=== PATIENT | male | born 1965 | race American Indian/Alaskan Native ===

== ENCOUNTER 2016-09-06 12:55 | Emergency (ER) | payer MEDICAID, OTHER ==
--- NOTE | 2016-09-06 15:20 | EDM.PDOC ---
[id number] 4d ABDOMINAL PAIN; TIRED Time Seen by Provider: 09/06/16 15:20 Source of Information: Reports: Patient History Limitations: Reports: No Limitations - History of Present Illness INITIAL COMMENTS - FREE TEXT/NARRATIVE: jose alejandro been having alot of epigastric pain. He is having some loose stool. He has not vomited. The pain got alot worse today while he was waiting for his son to get back from surgery. Onset: Gradual, Other ( worse today. ) Duration: Hour(s): Location: Reports: Abdomen Associated Symptoms: Reports: Nausea/Vomiting Upper Abdomen Pain Score (Numeric/FACES): 7 - Related Data Allergies Allergy/AdvReac Type Severity Reaction Status Date / Time No Known Allergies Allergy Verified 09/07/16 11:39 Home Meds: Home Meds FLUoxetine [PROzac] 20 mg PO DAILY 06/14/14 [History] Omeprazole [Prilosec] 20 mg PO BIDAC 06/15/15 [History] Sucralfate [Carafate] 1 gm PO DAILY 09/07/16 [History] Past Medical History - Past Health History Medical/Surgical History: Denies Medical/Surgical History Cardiovascular History: Reports: Hypertension Respiratory History: Reports: Sleep Apnea Other Respiratory History: c-pap prn Gastrointestinal History: Reports: Diverticulosis, GERD Other Gastrointestinal History: blood in stool Musculoskeletal History: Reports: Back Pain, Chronic, Other (See Below) Other Musculoskeletal History: Left shoulder dislocation Neurological History: Reports: Other (See Below) Other Neuro History: headaches for the past 2 weeks Psychiatric History: Reports: Anxiety, Depression - Past Surgical History GI Surgical History: Reports: Colonoscopy Social & Family History - Tobacco Use Smoking Status *Q: Former Smoker Years of Tobacco use: 26 Packs/Tins Daily: 0.7 Used Tobacco, but Quit: Yes Month Tobacco Last Used: quit last week Second Hand Smoke Exposure: Yes - Recreational Drug Use Recreational Drug Use: No ED ROS GENERAL - Review of Systems Review Of Systems: See Below Constitutional: Reports: No Symptoms HEENT: Reports: No Symptoms Respiratory: Reports: No Symptoms Cardiovascular: Reports: No Symptoms Endocrine: Reports: No Symptoms GI/Abdominal: Reports: Abdominal Pain, Nausea : Reports: No Symptoms ED EXAM, GENERAL - Physical Exam Exam: See Below Free Text/Narrative:: jose alejandro been having epigastric pain and this afternoon it quite kelly. He is using 2 prilosec daily. He has not been scoped. Exam Limited By: No Limitations General Appearance: Alert, Anxious Ears: Normal External Exam Nose: Normal Inspection Throat/Mouth: Normal Inspection Head: Atraumatic Neck: Normal Inspection Respiratory/Chest: No Respiratory Distress Cardiovascular: Regular Rate, Rhythm GI/Abdominal: Soft, Other (pt is quite tender in the epigastric area. He has not vomited, He is having loose stool. The stool obtained here was neg for blood. ) (Male) Exam: Deferred Rectal (Males) Exam: Other ( no masses the stool was neg for blood, ) Back Exam: Normal Inspection Extremities: Normal Inspection Neurological: Alert, Oriented, Normal Cognition Psychiatric: Normal Affect Course - Vital Signs Last Recorded V/S: Last Vital Signs Temp 36.5 C 09/06/16 15:18 Pulse 48 L 09/06/16 16:05 Resp 16 09/06/16 16:05 BP 117/72 09/06/16 16:05 Pulse Ox 99 09/06/16 16:05 - Orders/Labs/Meds Labs: Laboratory Tests 09/06/16 09/06/16 09/06/16 Range/Units 15:27 15:27 15:32 WBC 7.0 (4.5-11.0) K/uL RBC 4.94 (4.30-5.90) M/uL Hgb 15.4 H (12.0-15.0) g/dL Hct 43.8 (40.0-54.0) % MCV 89 (80-98) fL MCH 31 (27-31) pg MCHC 35 (32-36) % Plt Count 240 (150-400) K/uL Neut % (Auto) 51 (36-66) % Lymph % (Auto) 40 (24-44) % [place] % (Auto) 7 H (2-6) % Eos % (Auto) 2 (2-4) % Baso % (Auto) 1 (0-1) % Sodium 142 (140-148) mmol/L Potassium 3.9 (3.6-5.2) mmol/L Chloride 105 (100-108) mmol/L Carbon Dioxide 29 (21-32) mmol/L Anion Gap 8.2 (5.0-14.0) mmol/L BUN 8 (7-18) mg/dL Creatinine 0.8 (0.8-1.3) mg/dL Est Cr Clr Drug Dosing 128.44 mL/min Estimated GFR (MDRD) > 60 (>60) Glucose 92 (74-106) mg/dL Calcium 8.2 L (8.5-10.1) mg/dL Total Bilirubin 0.3 (0.2-1.0) mg/dL AST 18 (15-37) U/L ALT 33 (12-78) U/L Alkaline Phosphatase 86 (46-116) U/L Total Protein 7.3 (6.4-8.2) g/dL Albumin 3.7 (3.4-5.0) g/dL Globulin 3.6 H (2.3-3.5) g/dL Albumin/Globulin Ratio 1.0 L (1.2-2.2) Lipase 101 (73-393) U/L Urine Color Urine Appearance Urine pH (4.5-8.0) Ur Specific [place] (1.008-1.030) Urine Protein (NEGATIVE) mg/dL Urine Glucose (UA) (NEGATIVE) mg/dL Urine Ketones (NEGATIVE) mg/dL Urine Occult Blood (NEGATIVE) Urine Nitrite (NEGAITVE) Urine Bilirubin (NEGATIVE) Urine Urobilinogen (NORMAL) mg/dL Ur Leukocyte Esterase (NEGATIVE) Urine RBC (0-5) Urine WBC (0-5) Ur Epithelial Cells Amorphous Sediment Urine Bacteria Urine Mucus // Range/Units 15:41 WBC (4.5-11.0) K/uL RBC (4.30-5.90) M/uL Hgb (12.0-15.0) g/dL Hct (40.0-54.0) % MCV (80-98) fL MCH (27-31) pg MCHC (32-36) % Plt Count (150-400) K/uL Neut % (Auto) (36-66) % Lymph % (Auto) (24-44) % [place] % (Auto) (2-6) % Eos % (Auto) (2-4) % Baso % (Auto) (0-1) % Sodium (140-148) mmol/L Potassium (3.6-5.2) mmol/L Chloride (100-108) mmol/L Carbon Dioxide (21-32) mmol/L Anion Gap (5.0-14.0) mmol/L BUN (7-18) mg/dL Creatinine (0.8-1.3) mg/dL Est Cr Clr Drug Dosing mL/min Estimated GFR (MDRD) (>60) Glucose (74-106) mg/dL Calcium (8.5-10.1) mg/dL Total Bilirubin (0.2-1.0) mg/dL AST (15-37) U/L ALT (12-78) U/L Alkaline Phosphatase (46-116) U/L Total Protein (6.4-8.2) g/dL Albumin (3.4-5.0) g/dL Globulin (2.3-3.5) g/dL Albumin/Globulin Ratio (1.2-2.2) Lipase (73-393) U/L Urine Color Yellow Urine Appearance Clear Urine pH 6.0 (4.5-8.0) Ur Specific [place] 1.015 (1.008-1.030) Urine Protein Negative (NEGATIVE) mg/dL Urine Glucose (UA) Normal (NEGATIVE) mg/dL Urine Ketones Negative (NEGATIVE) mg/dL Urine Occult Blood Moderate (NEGATIVE) Urine Nitrite Negative (NEGAITVE) Urine Bilirubin Negative (NEGATIVE) Urine Urobilinogen Normal (NORMAL) mg/dL Ur Leukocyte Esterase Negative (NEGATIVE) Urine RBC 0-5 (0-5) Urine WBC 0-5 (0-5) Ur Epithelial Cells Not seen Amorphous Sediment Not seen Urine Bacteria Not seen Urine Mucus Not seen Meds: Medications Discontinued Medications Generic Name Dose Route Start Last Admin Trade Name Freq PRN Reason Stop Dose Admin Sucralfate 1 gm 09/06/16 16:04 09/06/16 16:14 Carafate PO 09/06/16 16:05 1 gm ONETIME ONE Administration - Re-Assessments/Exams Free Text/Narrative Re-Assessment/Exam: 09/06/16 16:54 Pt had a neg stool hemocult. His lab work looked normal. He had a normal lipase. He was given carafate and the pain did get better. Departure - Departure Time of Disposition: 16:55 Disposition: Home, Self-Care 01 Condition: fair Clinical Impression: Epigastric abdominal pain - Discharge Information Instructions: Gastroesophageal Reflux Disease, Adult Referrals: Cristobal Martinez MD [Primary Care Provider] - Forms: ED Department Discharge Care Plan Goals: cont prilosec 1 tab bid, add carafate 1 gm tid on a empty stomach, rtc to have a gastroscope.
[2016-09-06] MEDS ORDERED: Sucralfate 1 GM Tab PO ONE (16:04)
[2016-09-06 16:07] VITALS: BP 117/72
--- NOTE | 2016-09-07 08:40 | CR ---
Abdomen Series w Chest 1V HISTORY: epigastric pain. COMPARISON: Chest PA and lateral, 09/19/2010 FINDINGS: Lungs appear clear and normally aerated. Cardiomediastinal silhouette is within normal limits. No va scular redistribution or pleural fluid is seen. Bowel gas pattern is nonspecific. No obstruction or free air is identified. No soft tissue mass, organomegaly, or abnormal calcifications are seen. Bony structures are unremarkable. IMPRESSION: 1. No acute chest abnormality identified. 2. Nonspecific abdomen.
== END 2016-09-06 17:56 | disposition home or self-care (01) ==
LOC: JP.ED 12:55
DX: R10.13 Epigastric pain (principal); I10 Essential (primary) hypertension; K21.9 Gastro-esophageal reflux disease without esophagitis; F41.9 Anxiety disorder, unspecified; F32.9 Major depressive disorder, single episode, unspecified; Z79.899 Other long term (current) drug therapy; Z87.891 Personal history of nicotine dependence
CPT/HCPCS: 36415; 74022; 80053; 81001; 82272; 83690; 85025; 99284; A9270

== ENCOUNTER 2016-09-07 11:13 | Day surgery (SDC) | payer MEDICAID, OTHER ==
[2016-09-07] MEDS ORDERED: Lactated Ringers 1,000 ML IV SCH (11:30)
[2016-09-07] MEDS ORDERED: Midazolam 1 MG/ML 2 ML SDV ONE (12:36)
[2016-09-07] MEDS ORDERED: fentaNYL 100 MCG/2 ML SDV ONE (12:36)
[2016-09-07] MEDS ORDERED: Propofol 200 MG/20 ML SDV ONE (12:36)
[2016-09-07 14:28] VITALS: BP 103/64
--- NOTE | 2016-09-08 07:33 | OR ---
DATE OF PROCEDURE: 09/07/2016 PREOPERATIVE DIAGNOSIS: Epigastric pain. POSTOPERATIVE DIAGNOSES: Epigastric pain, mild gastritis, and duodenitis. PROCEDURE: Esophagogastroduodenoscopy with gastric biopsies for CLOtest and biopsy of duodenum and stomach for pathology to look for Helicobacter pylori. ANESTHESIA: IV anesthesia with monitored anesthesia care. INDICATION: This 51-year-old male is referred for upper endoscopy by Dr. Dean for epigastric pain. He presented to the emergency room yesterday and was referred for the procedure today. I counseled him for upper endoscopy with possible biopsy including risks and alternatives, and he gave his informed consent to proceed. DESCRIPTION OF PROCEDURE: The patient was placed in the left lateral decubitus position. IV anesthesia was administered by the Anesthesia Service. Time-out was held. The flexible video Olympus upper endoscope was passed through his mouth. down his esophagus, and into his stomach. The scope was easily passed through the pylorus into the duodenum reaching its third portion. The scope was then slowly withdrawn examining the mucosa throughout. The duodenum had some mild inflammation in the duodenal bulb. The scope was brought back up through the pylorus. There was some mild erythematous streaking emanating from th pylorus going proximally up into the stomach. We obtained gastric biopsies for CLOtest and gastric and duodenal biopsies for pathology to look for Helicobacter pylori. The scope was retroflexed. Most proximal stomach appeared unremarkable. The scope was straightened and brought up to the GE junction. This appeared unremarkable. The scope was then brought up through the unremarkable-appearing esophagus and was removed. He tolerated the procedure well. Sean Mccall MD /[id number]
== END 2016-09-07 14:30 | disposition home or self-care (01) ==
LOC: JP.SDS 11:13
PROVIDERS: ATTEND Surgery
DX: K29.50 Unspecified chronic gastritis without bleeding (principal); K29.80 Duodenitis without bleeding; G47.33 Obstructive sleep apnea (adult) (pediatric); I10 Essential (primary) hypertension; K21.9 Gastro-esophageal reflux disease without esophagitis; F41.9 Anxiety disorder, unspecified; F32.9 Major depressive disorder, single episode, unspecified; Z99.81 Dependence on supplemental oxygen
CPT/HCPCS: 43239; 87081; 88305; 88342; J2250; J2704; J3010; J7120

== ENCOUNTER 2018-08-10 17:50 | Emergency (ER) | payer BC, MEDICAID, OTHER ==
[2018-08-10] MEDS ORDERED: Aspirin 81 MG Tab.Chew PO ONE (18:02)
[2018-08-10] MEDS ORDERED: Sodium Chloride 0.9% 10 ML Syringe FLUSH PRN (18:03)
[2018-08-10] MEDS ORDERED: Clopidogrel 75 MG Tab PO ONE (18:06)
[2018-08-10] MEDS ORDERED: Metoprolol Tartrate 50 MG Tab PO ONE (18:06)
[2018-08-10] MEDS ORDERED: Heparin Sodium 5,000 Units/ML Vial IVPUSH ONE (18:06)
[2018-08-10] MEDS: Nitroglycerin 0.4 MG Tab.SL SL PRN ×3 (18:07→18:19)
[2018-08-10] MEDS ORDERED: Morphine 4 MG/ML Syringe IVPUSH ONE (18:13)
--- NOTE | 2018-08-10 18:18 | EDM.PDOC ---
ED HPI GENERAL MEDICAL PROBLEM - General Chief Complaint: Chest Pain Stated Complaint: CHEST PAIN Time Seen by Provider: 08/10/18 18:00 Source of Information: Reports: Patient History Limitations: Reports: No Limitations - History of Present Illness INITIAL COMMENTS - FREE TEXT/NARRATIVE: 53 yo NA male here with about 90 min of chest pain with some subjective SOB. Has a pHx of HTN, not taking his meds. FHx of cardiac dz. No diabetes. Quit smoking about 2 weeks ago. Has no local doctor currently. No pHx of cardiac dz. Onset: Today Onset Date: 08/10/18 Onset Time: 16:35 Duration: Minutes: Location: Reports: Chest Quality: Reports: Pressure Severity: Severe Improves with: Reports: None Worsens with: Reports: None Context: Reports: Other (see HPI) Associated Symptoms: Reports: Chest Pain, Shortness of Breath. 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 (took ASA x 2 today) Chest Pain Score (Numeric/FACES): 9 - Related Data Allergies Allergy/AdvReac Type Severity Reaction Status Date / Time No Known Allergies Allergy Verified 08/10/18 18:01 Home Meds: Home Meds FLUoxetine [PROzac] 20 mg PO DAILY 06/14/14 [History] Past Medical History - Past Health History Medical/Surgical History: Denies Medical/Surgical History HEENT History: Reports: Impaired Vision Other HEENT History: wears glasses Cardiovascular History: Reports: Hypertension Respiratory History: Reports: Sleep Apnea Other Respiratory History: c-pap prn Gastrointestinal History: Reports: Diverticulosis, GERD Other Gastrointestinal History: blood in stool Musculoskeletal History: Reports: Back Pain, Chronic, Other (See Below) Other Musculoskeletal History: Left shoulder dislocation Neurological History: Reports: Other (See Below) Other Neuro History: headaches for the past 2 weeks Psychiatric History: Reports: Anxiety, Depression - Infectious Disease History Infectious Disease History: Reports: Chicken Pox - Past Surgical History GI Surgical History: Reports: Colonoscopy Social & Family History - Family History Family Medical History: Noncontributory - Tobacco Use Smoking Status *Q: Former Smoker Used Tobacco, but Quit: Yes Month/Year Tobacco Last Used: 2 weeks - Caffeine Use Caffeine Use: Reports: Coffee, Soda ED ROS GENERAL - Review of Systems Review Of Systems: See Below Constitutional: Reports: No Symptoms HEENT: Reports: No Symptoms Respiratory: Reports: Shortness of Breath. Denies: Wheezing, Cough, Sputum, Hemoptysis Cardiovascular: Reports: Chest Pain, Blood Pressure Problem Endocrine: Reports: No Symptoms GI/Abdominal: Reports: No Symptoms : Reports: No Symptoms Musculoskeletal: Reports: No Symptoms Skin: Reports: No Symptoms Neurological: Reports: No Symptoms Psychiatric: Reports: No Symptoms ED EXAM, GENERAL - Physical Exam Exam: See Below Exam Limited By: No Limitations General Appearance: Alert, WD/WN, Mild Distress Eye Exam: Bilateral Eye: EOMI, Normal Inspection, PERRL Ears: Normal External Exam, Normal Canal, Hearing Grossly Normal Ear Exam: Bilateral Ear: Auricle Normal, Canal Normal Nose: Normal Inspection, Normal Mucosa, No Blood Throat/Mouth: Normal Inspection, Normal Lips, Normal Oropharynx, Normal Voice, No Airway Compromise Head: Atraumatic, Normocephalic Neck: Normal Inspection, Supple, Non-Tender Respiratory/Chest: No Respiratory Distress, Lungs Clear, Normal Breath Sounds, No Accessory Muscle Use Cardiovascular: Regular Rate, Rhythm, No Edema, Other (anterior chest wall tenderness present) GI/Abdominal: Normal Bowel Sounds, Soft, Non-Tender, No Distention Back Exam: Normal Inspection. No: CVA Tenderness (R), CVA Tenderness (L) Extremities: Normal Inspection, Normal Range of Motion, Non-Tender, No Pedal Edema Neurological: Alert, Oriented, CN II-XII Intact, Normal Cognition, No Motor/ Sensory Deficits Psychiatric: Normal Affect, Normal Mood Skin Exam: Warm, Dry, Intact, Normal Color, No Rash EKG INTERPRETATION EKG Date: 08/10/18 Time: 17:55 Rhythm: NSR Rate (Beats/Min): 77 [place]: Normal P-Wave: Present QRS: Normal ST-T: Elevated (ST elevation inferior leads) QT: Normal Comparison: NA - No Prior EKG Course - Vital Signs Last Recorded V/S: Last Vital Signs Temp 36.0 C 08/10/18 17:54 Pulse 80 08/10/18 18:11 Resp 20 08/10/18 17:54 BP 114/84 08/10/18 18:19 Pulse Ox 96 08/10/18 17:54 - Orders/Labs/Meds Orders: Active Orders 24 hr Category Date Time Status Cardiac Monitoring [RC] .As Directed Care 08/10/18 18:03 Ordered EKG Documentation Completion [RC] ASDIRECTED Care 08/10/18 18:03 Ordered BASIC METABOLIC PANEL,BMP [CHEM] Stat Lab 08/10/18 18:07 Ordered TROPONIN I [CHEM] Stat Lab 08/10/18 18:07 Ordered UA W/MICROSCOPIC [URIN] Stat Lab 08/10/18 18:07 Ordered Sodium Chloride 0.9% [Saline Flush] Med 08/10/18 18:03 Ordered 10 ml FLUSH ASDIRECTED PRN Saline Lock Insert [OM.PC] Routine Oth 08/10/18 18:03 Ordered EKG 12 Lead [EK] Routine Ther 08/10/18 18:03 Ordered Medication Orders Sodium Chloride (Saline Flush) 10 ml FLUSH ASDIRECTED PRN PRN Reason: Keep Vein Open Labs: Laboratory Tests 08/10/18 Range/Units 18:16 WBC 10.4 (4.5-11.0) K/uL RBC 5.12 (4.30-5.90) M/uL Hgb 15.8 H (12.0-15.0) g/dL Hct 45.7 (40.0-54.0) % MCV 89 (80-98) fL MCH 31 (27-31) pg MCHC 35 (32-36) % Plt Count 282 (150-400) K/uL Meds: Medications Generic Name Dose Route Start Last Admin Trade Name Freq PRN Reason Stop Dose Admin Sodium Chloride 10 ml 08/10/18 18:03 Saline Flush FLUSH ASDIRECTED PRN Keep Vein Open Discontinued Medications Generic Name Dose Route Start Last Admin Trade Name Freq PRN Reason Stop Dose Admin Aspirin 324 mg 08/10/18 18:02 08/10/18 18:20 Aspirin PO 08/10/18 18:03 Not Given ONETIME ONE Clopidogrel Bisulfate 600 mg 08/10/18 18:06 08/10/18 18:11 Plavix PO 08/10/18 18:07 600 mg ONETIME ONE Administration Heparin Sodium (Porcine) 5,000 units 08/10/18 18:06 08/10/18 18:14 Heparin Sodium IVPUSH 08/10/18 18:07 5,000 units ONETIME ONE Administration Metoprolol Tartrate 50 mg 08/10/18 18:06 08/10/18 18:11 Lopressor PO 08/10/18 18:07 50 mg ONETIME ONE Administration Morphine Sulfate 4 mg 08/10/18 18:13 08/10/18 18:16 Morphine IVPUSH 08/10/18 18:14 4 mg ONETIME ONE Administration Nitroglycerin 0.4 mg 08/10/18 18:03 08/10/18 18:19 Nitrostat SL 0.4 mg Q5M PRN Administration Chest Pain Departure - Departure Time of Disposition: 18:30 Disposition: DC/Tfer to Acute Hospital 02 Condition: Critical Clinical Impression: Acute inferior myocardial infarction - Discharge Information *PRESCRIPTION DRUG MONITORING PROGRAM REVIEWED*: No *COPY OF PRESCRIPTION DRUG MONITORING REPORT IN PATIENT PAULIE: No Referrals: PCP,None [Primary Care Provider] - Forms: ED Department Discharge - My Orders Last 24 Hours: My Active Orders 08/10/18 18:03 Cardiac Monitoring [RC] .As Directed EKG Documentation Completion [RC] ASDIRECTED Sodium Chloride 0.9% [Saline Flush] 10 ml FLUSH ASDIRECTED PRN Saline Lock Insert [OM.PC] Routine EKG 12 Lead [EK] Routine 08/10/18 18:07 BASIC METABOLIC PANEL,BMP [CHEM] Stat TROPONIN I [CHEM] Stat UA W/MICROSCOPIC [URIN] Stat - Assessment/Plan Last 24 Hours: My Active Orders 08/10/18 18:03 Cardiac Monitoring [RC] .As Directed EKG Documentation Completion [RC] ASDIRECTED Sodium Chloride 0.9% [Saline Flush] 10 ml FLUSH ASDIRECTED PRN Saline Lock Insert [OM.PC] Routine EKG 12 Lead [EK] Routine 08/10/18 18:07 BASIC METABOLIC PANEL,BMP [CHEM] Stat TROPONIN I [CHEM] Stat UA W/MICROSCOPIC [URIN] Stat
[2018-08-10 18:21] VITALS: BP 114/84
== END 2018-08-10 18:25 ==
LOC: JP.ED 17:50
DX: I21.29 ST elevation (STEMI) myocardial infarction involving other sites (principal); I10 Essential (primary) hypertension; F41.9 Anxiety disorder, unspecified; F32.9 Major depressive disorder, single episode, unspecified; Z87.891 Personal history of nicotine dependence; Z79.899 Other long term (current) drug therapy
CPT/HCPCS: 36415; 80048; 84484; 85027; 93005; 96374; 96375; 99285; A9270; J1644; J2270

== ENCOUNTER 2020-07-13 14:40 | Emergency (ER) | payer BC ==
[2020-07-13] MEDS ORDERED: LORazepam 2 MG/ML SDV IVPUSH ONE (15:02)
--- NOTE | 2020-07-13 15:10 | EDM.PDOC ---
ED HPI GENERAL MEDICAL PROBLEM - General Chief Complaint: Chest Pain Stated Complaint: HEART TROUBLE Time Seen by Provider: 07/13/20 14:40 Source of Information: Reports: Patient History Limitations: Reports: No Limitations - History of Present Illness INITIAL COMMENTS - FREE TEXT/NARRATIVE: 55-year-old male who had an ablation just over 2 weeks ago for atrial fibrillation, presents with acute stabbing chest pain, anxiety, and muscle spasms with tingling in his face and hands since he started getting some palpitations 2 hours ago. He arrives hyperventilating, extremely anxious and shaking and uncomfortable. cardiac monitor technician shows sinus rhythm with occasional PACs. Claims he got real lightheaded and diaphoretic prior to coming in. Onset: Sudden Duration: Hour(s): (2 hours) Location: Reports: Chest Associated Symptoms: Reports: Other (Anxiety and hyperventilation) Chest Pain Score (Numeric/FACES): 6 - Related Data Allergies Allergy/AdvReac Type Severity Reaction Status Date / Time No Known Allergies Allergy Verified 07/13/20 14:52 Home Meds: Home Meds FLUoxetine [PROzac] 20 mg PO DAILY 06/14/14 [History] Losartan [Cozaar] 0.5 tab PO DAILY 10/10/19 [History] Metoprolol Tartrate [Lopressor] 12.5 mg PO BID 10/10/19 [History] Nicotine Polacrilex [Commit] 1 lizzie PO ASDIRECTED PRN 10/10/19 [History] Ticagrelor [Brilinta] 90 mg PO BID 10/10/19 [History] atorvaSTATin [Lipitor] 80 mg PO QPM 10/10/19 [History] traZODone HCl [Trazodone HCl] 1 tab PO QPM 10/10/19 [History] Past Medical History - Past Health History Medical/Surgical History: Denies Medical/Surgical History HEENT History: Reports: Impaired Vision Other HEENT History: wears glasses Cardiovascular History: Reports: Hypertension, Stents Respiratory History: Reports: Sleep Apnea Other Respiratory History: c-pap prn Gastrointestinal History: Reports: Diverticulosis, GERD Other Gastrointestinal History: blood in stool Musculoskeletal History: Reports: Back Pain, Chronic, Other (See Below) Other Musculoskeletal History: Left shoulder dislocation Neurological History: Reports: Other (See Below) Other Neuro History: headaches for the past 2 weeks Psychiatric History: Reports: Anxiety, Depression - Infectious Disease History Infectious Disease History: Reports: Chicken Pox - Past Surgical History Cardiovascular Surgical History: Reports: Cardiac Ablation, Coronary Artery Stent Other Cardiovascular Surgeries/Procedures: 2 stents Respiratory Surgical History: Reports: None GI Surgical History: Reports: Colonoscopy Neurological Surgical History: Reports: Other (See Below) Other Neurological Surgeries/Procedures: "nerve endings burnt" Musculoskeletal Surgical History: Reports: Other (See Below) Other Musculoskeletal Surgeries/Procedures:: nerve ending burnt in back Social & Family History - Family History Family Medical History: No Pertinent Family History - Tobacco Use Tobacco Use Status *Q: Current Every Day Tobacco User Years of Tobacco use: 25 Packs/Tins Daily: 1 - Caffeine Use Caffeine Use: Reports: Coffee - Recreational Drug Use Recreational Drug Use: No ED ROS GENERAL - Review of Systems Review Of Systems: See Below Constitutional: Reports: Malaise. Denies: Fever, Chills HEENT: Reports: No Symptoms Respiratory: Reports: Shortness of Breath Cardiovascular: Reports: Chest Pain, Palpitations GI/Abdominal: Reports: No Symptoms : Reports: No Symptoms Skin: Reports: Diaphoresis Neurological: Reports: Dizziness Psychiatric: Reports: Anxiety ED EXAM, GENERAL - Physical Exam Exam: See Below Exam Limited By: No Limitations General Appearance: Alert, Anxious, Mild Distress Eye Exam: Bilateral Eye: Normal Inspection Head: Atraumatic, Normocephalic Neck: Non-Tender Respiratory/Chest: Lungs Clear Cardiovascular: Regular Rate, Rhythm, Extra Beats (Occasional ectopic beats are heard but underlying regular rhythm) GI/Abdominal: Soft, Non-Tender Extremities: Other (Hands are shaking significantly, barely able to hold a pill of nitro). No: Pedal Edema Neurological: Alert, Oriented Psychiatric: Anxious #1 Interpretation EKG Date: 07/13/20 Rhythm: NSR P-Wave: Present QRS: Normal ST-T: Normal Course - Vital Signs Last Recorded V/S: Last Vital Signs Temp 97.5 F 07/13/20 14:45 Pulse 67 07/13/20 17:41 Resp 22 H 07/13/20 17:41 BP 132/86 07/13/20 17:41 Pulse Ox 94 L 07/13/20 17:41 - Orders/Labs/Meds Orders: Active Orders 24 hr Category Date Time Status EKG 12 Lead [EK] Routine Ther 07/13/20 14:52 Ordered Labs: Laboratory Tests 07/13/20 07/13/20 07/13/20 Range/Units 14:46 14:46 15:19 WBC 13.6 H (4.5-11.0) K/uL RBC 4.95 (4.30-5.90) M/uL Hgb 15.4 H (12.0-15.0) g/dL Hct 44.9 (40.0-54.0) % MCV 91 (80-98) fL MCH 31 (27-31) pg MCHC 34 (32-36) % Plt Count 294 (150-400) K/uL Neut % (Auto) 74 H (36-66) % Lymph % (Auto) 21 L (24-44) % [place] % (Auto) 5 (2-6) % Eos % (Auto) 0 L (2-4) % Baso % (Auto) 0 (0-1) % Puncture Site Rt radial ABG pH 7.479 H (7.350-7.450) ABG pCO2 33.4 L (35.0-42.0) mmHg ABG pO2 64.3 L (75.0-100.0) mmHg ABG HCO3 24.5 (22.0-26.0) mmol/L ABG Total CO2 21.0 L (23.0-27.0) mmol/L ABG O2 Saturation 93.5 L (95.0-98.0) % ABG O2 Content 19.2 (15.0-23.0) %vol ABG Base Excess 2.0 mm/L ABG Hemoglobin 14.9 (13.5-18.0) g/dL ABG Oxyhemoglobin 91.6 % ABG Carboxyhemoglobin 1.3 (0.0-1.6) % ABG Methemoglobin 0.7 % Rhys Test Passed O2 Delivery Device Room air Sodium 144 (140-148) mmol/L Potassium 3.4 L (3.6-5.2) mmol/L Chloride 103 (100-108) mmol/L Carbon Dioxide 23 (21-32) mmol/L Anion Gap 21.4 H (5.0-14.0) mmol/L BUN 9 (7-18) mg/dL Creatinine 0.9 (0.8-1.3) mg/dL Est Cr Clr Drug Dosing 109.09 mL/min Estimated GFR (MDRD) > 60 (>60) Glucose 120 H (74-106) mg/dL Calcium 8.8 (8.5-10.1) mg/dL Troponin I < 0.017 (0.000-0.056) ng/mL 07/13/20 Range/Units 17:16 WBC (4.5-11.0) K/uL RBC (4.30-5.90) M/uL Hgb (12.0-15.0) g/dL Hct (40.0-54.0) % MCV (80-98) fL MCH (27-31) pg MCHC (32-36) % Plt Count (150-400) K/uL Neut % (Auto) (36-66) % Lymph % (Auto) (24-44) % [place] % (Auto) (2-6) % Eos % (Auto) (2-4) % Baso % (Auto) (0-1) % Puncture Site ABG pH (7.350-7.450) ABG pCO2 (35.0-42.0) mmHg ABG pO2 (75.0-100.0) mmHg ABG HCO3 (22.0-26.0) mmol/L ABG Total CO2 (23.0-27.0) mmol/L ABG O2 Saturation (95.0-98.0) % ABG O2 Content (15.0-23.0) %vol ABG Base Excess mm/L ABG Hemoglobin (13.5-18.0) g/dL ABG Oxyhemoglobin % ABG Carboxyhemoglobin (0.0-1.6) % ABG Methemoglobin % Rhys Test O2 Delivery Device Sodium (140-148) mmol/L Potassium (3.6-5.2) mmol/L Chloride (100-108) mmol/L Carbon Dioxide (21-32) mmol/L Anion Gap (5.0-14.0) mmol/L BUN (7-18) mg/dL Creatinine (0.8-1.3) mg/dL Est Cr Clr Drug Dosing mL/min Estimated GFR (MDRD) (>60) Glucose (74-106) mg/dL Calcium (8.5-10.1) mg/dL Troponin I < 0.017 (0.000-0.056) ng/mL Meds: Medications Discontinued Medications Generic Name Dose Route Start Last Admin Trade Name Melissa PRN Reason Stop Dose Admin Lorazepam 1 mg 07/13/20 15:02 07/13/20 15:11 Lorazepam 2 Mg/Ml Sdv IVPUSH 07/13/20 15:03 1 mg ONETIME ONE Administration - Re-Assessments/Exams Free Text/Narrative Re-Assessment/Exam: 07/13/20 15:09 EKG shows no obvious evidence of NM, patient will be given 1 mg of IV Ativan while awaiting a CBC, BMP and troponin. I also vane blood gases to assess the amount of hyperventilation. 07/13/20 15:29 Troponin returned 0, even after the Ativan the patient was still tremulous and he pointed to his chest and said it feels like he is in atrial fibrillation. The monitor shows sinus rhythm, no tachycardia. I explained to him that it cannot be both. His is currently in the ICU and has been ventilated for the past week, and his son called us and said he has been under tremendous stress. ABGs are pending. 07/13/20 16:29 ABGs to confirm moderate hyperventilation with a pH of 7.48 and CO2 23. Troponin is 0. Rest of his labs are reassuring. The sublingual nitro did not make a difference but 20 minutes after the Ativan he was resting quietly. 1 view chest x-ray was obtained. This was normal. Patient remained in a normal sinus rhythm, no tachycardia and the PACs resolved. 07/13/20 17:47 A second troponin was drawn and again was 0, he continued to feel much better. He will be discharged with 10 doses of 1 mg Ativan to take as needed anxiety. He can always return if he worsens or redevelop symptoms that are persistent Departure - Departure Time of Disposition: 17:54 Disposition: Home, Self-Care 01 Clinical Impression: Acute hyperventilation syndrome, Anxiety about health, Palpitations - Discharge Information Instructions: Palpitations Referrals: Gwen Bardales MD [Primary Care Provider] - Forms: ED Department Discharge Care Plan Goals: Rest tonight, use Ativan every 4-6 hours if needed but try to use sparingly. Continue your regular medications, return if worsening or concerns. Sepsis Event Note (ED) - Evaluation Sepsis Screening Result: No Definite Risk - My Orders Last 24 Hours: My Active Orders 07/13/20 14:52 EKG 12 Lead [EK] Routine - Assessment/Plan Last 24 Hours: My Active Orders 07/13/20 14:52 EKG 12 Lead [EK] Routine
--- NOTE | 2020-07-13 15:46 | CR ---
CHEST: Portable 07/13/2020 at 3:41 PM CLINICAL HISTORY:Chest pain, SOB COMPARISON:August 2016 FINDINGS: The heart size, pulmonary vascularity and hilar structures are normal. No infiltrate effusion or pneumothorax is seen. IMPRESSION: No acute cardiopulmonary process.
[2020-07-13 17:42] VITALS: BP 132/86; PULSE 67
== END 2020-07-13 18:01 | disposition home or self-care (01) ==
LOC: JP.ED 14:40
DX: F41.9 Anxiety disorder, unspecified (principal); I10 Essential (primary) hypertension; Z72.0 Tobacco use; Z79.899 Other long term (current) drug therapy
CPT/HCPCS: 36415; 36600; 71045; 71045-26; 80048; 82803; 84484; 85025; 93005; 96374; 99284; 99285-25; J2060